=== PATIENT | female | born 1960 | race American Indian/Alaskan Native ===

== ENCOUNTER 2021-10-21 06:27 | Day surgery (SDC) | payer OTHER ==
[2021-10-21] MEDS ORDERED: ASPIRIN EC 325 MG TAB PO SCH (07:00)
[2021-10-21 07:19] LABS: Basophils # (Auto) 0.1 K/mm3 (0.0-0.1); Basophils % (Auto) 0.8 % (0.0-1.8); Eosinophils # (Auto) 0.6 K/mm3 (0.0-0.4); Eosinophils % (Auto) 7.6 % (0.0-4.3); Hematocrit 31.5 % (30.3-42.9); Hemoglobin 9.9 gm/dl (10.1-14.3); Lymphocytes # (Auto) 1.9 K/mm3 (1.2-5.4); Lymphocytes % (Auto) 25.2 % (13.4-35.0); Mean Corpuscular HGB Conc 32 % (30-34); Mean Corpuscular Volume 85 fl (79-97); Monocytes # (Auto) 0.5 K/mm3 (0.0-0.8); Monocytes % (Auto) 6.7 % (0.0-7.3); Platelet Count 256 K/mm3 (140-440); Red Blood Count 3.69 M/mm3 (3.65-5.03); Red Cell Distribution Width 16.7 % (13.2-15.2)
[2021-10-21 07:30] LABS: Calcium 9.2 mg/dL (8.4-10.2); INR 0.96 (0.87-1.13)
[2021-10-21 07:31] LABS: Partial Thromboplastin Time 33.2 Sec. (24.2-36.6)
[2021-10-21] MEDS: SODIUM CHLORIDE 0.9% 500 ML 500 ML IV SCH ×2 (07:33→08:25)
[2021-10-21] MEDS ORDERED: HEPARIN 10,000 UNITS/10 ML VIAL ONE (08:14)
[2021-10-21] MEDS ORDERED: HEPARIN/NS 5000 UNIT/500ML 1,000 ML IR ONE (08:14)
[2021-10-21] MEDS ORDERED: NITROGLYCERIN SYRINGE 3 ML ONE (08:15)
[2021-10-21] MEDS ORDERED: VERAPAMIL 5 MG/2 ML INJ ONE (08:15)
[2021-10-21] MEDS: fentaNYL 100 MCG/2 ML INJ ONE ×2 (08:24→09:11)
[2021-10-21] MEDS: MIDAZOLAM 2 MG/2 ML INJ ONE ×2 (08:25→09:12)
[2021-10-21] MEDS ORDERED: LIDOCAINE (1%) 10 MG/1 ML VIAL 20 ML MDV ONE (08:27)
[2021-10-21] MEDS: hydrALAZINE 20 MG/1 ML INJ ONE ×2 (09:20→09:25)
--- NOTE | 2021-10-21 09:50 | Cardiac Catherization Report ---
DATE OF SERVICE: 10/21/2021 Left heart catheterization done on 10/22/2019. CLINICAL INFORMATION: This is a 60-year-old -[place] female who has hypertension, end-stage renal disease, on hemodialysis with shortness of breath and chest pain on dialysis, despite negative stress test, here for left heart cath. Left heart catheterization done with moderate sedation started at 04/04 and finished at 04/19 15 minutes of moderate sedation. DESCRIPTION OF PROCEDURE: Procedure was done via the right radial artery, sterile technique and local anesthesia. A 6-Nepali radial sheath inserted. Left system engaged with a JL3.5 catheter. Left main is large, long and patent. LAD is a large caliber vessel, was patent with moderate tortuosity. Diagonal 1 medium caliber was patent. Circumflex, large caliber vessel, goes into a large caliber OM1 with multiple branches patent. RCA engaged with JR4 catheter, is a large caliber vessel, was patent with moderate tortuosity. PDA, PLV medium caliber vessel, patent. LV gram done in [facility] and RANGEL shows normal LV function, EF 50% -55%. LVEDP 17 mmHg, LV is 191, aortic is 191/84. No gradient across the aortic valve on pullback. A 5-Nepali catheters all taken over guidewire. A 6-Nepali radial sheath was DC. Radial dressing. Radial band applied. No hematoma, no bleeding. SUMMARY: Left main patent, LAD patent, circumflex patent, OM1 patent, RCA patent with normal LV function, normal left end-diastolic pressure. Normal coronaries. Continue risk factor modification, needs post-cath dialysis on a normal dialysis day. Discussed this with the patient and the patient's daughter in detail. TID: [id number] RECEIPT: [id number] RHODA/CECELIA
--- NOTE | 2021-10-21 11:20 | Short Stay Summary ---
Short Stay Documentation Date of service: 10/21/21 - History H&P: obtained from office - Allergies and Medications Current Medications: Allergies No Known Allergies Allergy (Unverified 10/21/21 06:48) Home Medications Medication Instructions Recorded Confirmed Last Taken Type Insulin NPH/Regular [Novolin 70/30] 17 unit SUB-Q BID 10/21/21 10/21/21 10/20/21 History Losartan [Cozaar] 100 mg PO QDAY 10/21/21 10/21/21 10/21/21 History carvediloL [Coreg] 12.5 mg PO BID 10/21/21 10/21/21 10/21/21 History Active Medications Hydrocodone Bitart/Acetaminophen (Hydrocodone/Acetaminophen 5-325 Mg Tab) 1 each PO Q4H PRN PRN Reason: Pain, Moderate (4-6) Aspirin (Aspirin Ec 325 Mg Tab) 325 mg PO ONCE@0700 ROSA Stop: 10/21/21 17:00 Last Admin: 10/21/21 07:32 Dose: 325 mg Sodium Chloride (Nacl 0.9% 500 Ml) 500 mls @ 50 mls/hr IV DIRECT ROSA Stop: 10/21/21 16:59 Last Admin: 10/21/21 08:25 Dose: 50 mls/hr Tramadol HCl (Tramadol 50 Mg Tab) 50 mg PO Q4H PRN PRN Reason: Pain, Mild (1-3) - Physical exam Integumentary: other (Right radial dressing clean dry and intact. No bleeding, hematoma noted. ) - Brief post op/procedure progress note Date of procedure: 10/21/21 Pre-op diagnosis: Shortness of Breath/ Chest Pain Post-op diagnosis: other (Normal Coronaries) Anesthesia: local Estimated blood loss: minimal - Hospital course Hospital course: Patient presented today for and a cardiac catheterization. Patient tolerated procedure well. Patient found to have normal coronaries. Patient to be discharged home with follow-up appointment in place. - Disposition Condition at discharge: Good Disposition: 01 HOME / SELF CARE / HOMELESS - Discharge Diagnoses (1) Hypertension Status: Acute (2) ESRD (end stage renal disease) Status: Acute (3) Diabetes Status: Acute (4) Obesity Status: Acute Short Stay Discharge Plan Activity: advance as tolerated Diet: low fat, low cholesterol, low salt Wound: keep clean and dry, per your surgeon's advice Follow up with: ALEX LYNNE MD [Primary Care Provider] - 7 Days MERCEDES VALENTINE MD [Staff Physician] - 11/14/21 8:30 am (F/u at our [place] location )
[2021-10-21] MEDS ORDERED: HYDROcodone/ACETAMINOPHEN 5-325 MG TAB PO PRN (11:30)
[2021-10-21] MEDS ORDERED: traMADol 50 MG TAB PO PRN (11:30)
[2021-10-21 11:52] VITALS: BP 167/85
--- NOTE | 2021-10-22 14:22 | Electrocardiograph Report ---
[facility] Test Date: 2021-10-21 Test Time: 07:25:52 Pat Name: STEVE ROCHA Department: Room: Gender: F [employer]: MARY LOU : 1960 Requested By: NERY ESCOTO Order Number: [id number] Reading MD: Rocio Lamas Measurements Intervals [place] Rate: 76 P: 82 ME: 148 QRS: 21 QRSD: 86 T: QT: 424 QTc: 476 Interpretive Statements Sinus rhythm Nonspecific T abnormalities, lateral leads No previous ECG available for comparison Electronically Signed On 10-22-2021 14:22:19 EDT by Rocio Lamas
== END 2021-10-21 14:00 | disposition home or self-care (01) ==
LOC: CATHLABREC 06:27
PROVIDERS: ATTEND Internal Medicine
DX: R07.89 Other chest pain (principal); R06.02 Shortness of breath; I13.2 Hypertensive heart and chronic kidney disease with heart failure and with stage 5 chronic kidney disease, or end stage renal disease; I50.9 Heart failure, unspecified; E11.22 Type 2 diabetes mellitus with diabetic chronic kidney disease; N18.6 End stage renal disease; E78.2 Mixed hyperlipidemia; E66.9 Obesity, unspecified; Z87.891 Personal history of nicotine dependence; Z79.4 Long term (current) use of insulin; Z99.2 Dependence on renal dialysis; Z79.899 Other long term (current) drug therapy; Z87.440 Personal history of urinary (tract) infections; Z83.3 Family history of diabetes mellitus; Z82.61 Family history of arthritis; Z68.35 Body mass index [BMI] 35.0-35.9, adult; Z82.5 Family history of asthma and other chronic lower respiratory diseases; Z82.49 Family history of ischemic heart disease and other diseases of the circulatory system
CPT/HCPCS: 36415; 80048; 85025; 85610; 85730; 93005; 93458; 99156; C1894; J0360; J1644; J1815; J2250; J3010; J3490; J7040; Q9967